=== PATIENT | female | born 1975 | race Caucasian/White ===

== ENCOUNTER 2021-05-21 13:43 | Emergency (ER) | payer MEDICAID ==
[~2021-05-21] VITALS: Ht 165.1 cm; Wt 65.9 kg
[2021-05-21 14:05] VITALS: BP 98/61
== END 2021-05-21 17:04 | disposition home or self-care (01) ==
LOC: ER 13:44
DX: M25.562 Pain in left knee (principal); Z88.2 Allergy status to sulfonamides; Z88.8 Allergy status to other drugs, medicaments and biological substances
CPT/HCPCS: 99281

== ENCOUNTER 2022-01-22 13:55 | Emergency (ER) | payer MEDICAID ==
[~2022-01-22] VITALS: Ht 165.1 cm; Wt 68.2 kg
[2022-01-22 15:13] VITALS: BP 135/95
[2022-01-22] MEDS ORDERED: LIDOcaine 1% 30ml preserv. free vial IJ STA (15:36)
[2022-01-22] MEDS ORDERED: HYDR-3965 PO (16:12)
== END 2022-01-22 16:51 | disposition home or self-care (01) ==
LOC: ER 13:55
DX: S61.210A Laceration without foreign body of right index finger without damage to nail, initial encounter (principal); W22.8XXA Striking against or struck by other objects, initial encounter; Y93.89 Activity, other specified; Y92.89 Other specified places as the place of occurrence of the external cause; Y99.8 Other external cause status
CPT/HCPCS: 12001; 73140; 99283; J7030; A6258; A6449